=== PATIENT | male | born 1990 | race Caucasian/White ===

== ENCOUNTER 2018-09-04 18:22 | Inpatient (IN) | payer MEDICAID, OTHER ==
[~2018-09-04] VITALS: Ht 170.2 cm; Wt 65.0 kg
[~2018-09-04 18:22] MED LIST: SLEEP MED
--- NOTE | 2018-09-04 18:33 | NUR ---
27 Y/O MALE BIB PERFORMANCE TEST ARCHITECT WITH C/O SI [facility] DAD CALLED AND SAID HE IS SUICIDAL. HE IS ON A LEGAL HOLD." PT CHANGED INTO GOWN. EDMD BEDSIDE. PT REMOVED FROM ALL HIS CLOTHING AND PLACED INTO GOWN. PT STATING "DELMER DONT LOOK SO EVIL. I'M THE DEVIL. I DON'T KNOW WHO I'M TALKING TO."
--- NOTE | 2018-09-04 18:46 | NUR ---
PATIENT UNCOOPERATIVE FOR BREATHALYZER
--- NOTE | 2018-09-04 18:51 | NUR ---
PT DENIES HI/SI. PT PLACED IN TWO POINT RESTRAINTS
--- NOTE | 2018-09-04 18:51 | NUR ---
BEDSIDE REPORT TO ISHMAEL PHILLIPS
--- NOTE | 2018-09-04 19:05 | NUR ---
RECEIVED BS REPORT FROM ISHMAEL LONGO TO ASSUME CARE OF PT. DR. ALMARAZ BROUGHT PT. FOOD AT THIS TIME. ROOM IS SECURED AND PER QING SITTER HAS BEEN REQUESTED. PT. SPEAKING RAPIDLY SAYING THINGS LIKE "DELMER LOOK UP, DELMER LOOK DOWN" OVER AND OVER AGAIN. PT. DOES ANSWER QUESTIONS BY STAFF EACH TIME STATING "DELMER SAYS YES" OR "DELMER SAYS NO". ALL SAFETY MEASURES OBSERVED.
[2018-09-04 19:09] LABS: ALANINE AMINOTRANSFERASE 66 U/L (12-78); ALBUMIN 3.8 g/dL (3.4-5.0); ANION GAP 6 mmol/L (5-15); CALCIUM 8.3 mg/dL (8.5-10.1); CHLORIDE 110 mmol/L (98-107); CREATININE 0.85 mg/dL (0.7-1.3)
[2018-09-04 19:11] LABS: ALKALINE PHOSPHATASE 74 U/L (45-117); TOTAL PROTEIN 6.9 g/dL (6.4-8.2)
[2018-09-04 19:13] LABS: SALICYLATE LEVEL < 1.7 mg/dL (2.8-20.0)
--- NOTE | 2018-09-04 20:01 | NUR ---
PT. HAD EATEN ALL NACHOS THAT WERE PROVIDED BY DR. ALMARAZ. PT. NOW REQUESTING MORE FOOD. PT. REMAINS IN SECURED ROOM WITH SITTER IN RENNER.
--- NOTE | 2018-09-04 20:22 | NUR ---
BS REPORT TO ISHMAEL BERMUDEZ. PT. MOVED TO ED 38 AT THIS TIME. ROOM IS SECURED. SITTER IN RENNER. PT. CONTINUES TO TALK TO SELF NON-STOP. SKIN PWD.
--- NOTE | 2018-09-04 20:26 | NUR ---
Report from Lea QUIÑONES, pt remains in 2 point restraints, pt appears untrustworthy at this time, will continue to montior and maintain all safety measures, all belongings remain locked up, all security doors down and sitter remains at door.
--- NOTE | 2018-09-04 20:44 | NUR ---
Pt given cheerios per request with milk, no plastic spoon provied for pt safety. Pt requesting to be taken out of restraints, when asked if pt understands plan and is to stay in room, pt states "I dont plan on staying here, Im leaving as soon as possible" Pt appears to still be flight risk and danger to self, will continue to keep in restraints at this time, sitter at door assisting pt with cheerios and milk
--- NOTE | 2018-09-04 21:04 | NUR ---
Pt refusing to give sitter his cheerio container, hiding it underneath him, pt uncooperative with staff, sitter remains at door
--- NOTE | 2018-09-04 22:24 | NUR ---
Pt refusing repeat vitals, increasingly agitated when electrophysiology technologist attempts to take vitals.
--- NOTE | 2018-09-04 22:40 | NUR ---
Pt taken out of restraints, agrees to remain in room, agrees to remain calm, cooperative. Sitter remains at door watching pt
--- NOTE | 2018-09-04 23:57 | NUR ---
Sitter remains at door, pt lying in bed smiling, quiet, when asked questions pt repeats "yes, no, yes no" Pt still uncooperative with obtaining urine sample
--- NOTE | 2018-09-05 00:22 | NUR ---
Pt ambualted to restroom with sitter, pt given more cheerios per request with sitter at door supervising pt
--- NOTE | 2018-09-05 00:49 | NUR ---
Sitter aware of need for ua
--- NOTE | 2018-09-05 00:53 | NUR ---
TP RN: WAITING ON [facility] TO FAX INFO
--- NOTE | 2018-09-05 01:57 | NUR ---
TASK RN: PT RESTING IN [place] [place] NOTED. ROOM SECURE. SITTER PRESENT.
--- NOTE | 2018-09-05 02:54 | NUR ---
Pt refusing to give back plastic spoon provided by jorge for cereal. Security called, spoon retrieved.
--- NOTE | 2018-09-05 02:54 | NUR ---
Pt continues to refuse vitals, increasingly agitated when low voltage technician attempts to take vitals. Pt given cup of water, pt threw cup of water on ground, water cleaned up by RN.
--- NOTE | 2018-09-05 03:04 | NUR ---
Pt requesting coffee, due to pts recent episode of throwing stuff toward staff no coffee or hot beverages will per given to pt
--- NOTE | 2018-09-05 03:08 | NUR ---
Report to Fuentes QUIÑONES
[2018-09-05] MEDS ORDERED: ZIPRASIDONE 20 MG INJ IM ONE ×4 (03:17→13:53)
[2018-09-05] MEDS: ZIPRASIDONE 20 MG INJ IM PRN ×2 (03:33→08:56)
--- NOTE | 2018-09-05 03:43 | NUR ---
PT MEDICATED PER MAR FOR AGITATION WITH SECURITY AT BS.
--- NOTE | 2018-09-05 04:05 | NUR ---
PT UNCOOPERATIVE AND REFUSING TO GIVE URINE SAMPLE. PT BEING VERBALLY ABUSIVE TO STAFF. PT HAS SITTER OUTSIDE OF ROOM AT THIS TIME FOR DIRECT OBSERVATION.
--- NOTE | 2018-09-05 04:58 | NUR ---
PT ASLEEP IN [facility] AT THIS TIME; CHAPIN. SITTER OUTSIDE OF PT ROOM FOR DIRECT OBSERVATION OF PT.
--- NOTE | 2018-09-05 05:47 | NUR ---
REPORT OF PT TO ISHMAEL SOLOMON. ALL QUESTIONS ANSWERED.
[2018-09-05 05:55] LABS: AMPHETAMINE SCREEN, URINE Negative (Negative); BARBITURATE SCREEN, URINE Negative (Negative); BENZODIAZEPINE SCREEN, URINE Negative (Negative); CANNABINOID SCREEN, URINE Positive (Negative); COCAINE SCREEN, URINE Negative (Negative); METHADONE SCREEN, URINE Negative (Negative); OPIATE SCREEN, URINE Negative (Negative)
--- NOTE | 2018-09-05 05:57 | NUR ---
report from lindsay assumed care of pt, pt sleeping in bed with room secure and sitter outside door in nad
--- NOTE | 2018-09-05 07:00 | NUR ---
bedside report from RN Carisa, pt care assumed at this time. Pt asleep in bed in suicide secured room, NAD, sitter at doorway, belongings secured by previous shift. MEGHAN.
--- NOTE | 2018-09-05 07:49 | NUR ---
BREAKFAST TRAY ORDERED
--- NOTE | 2018-09-05 08:56 | NUR ---
PT HAS BEEN INCREASINGLY AGITATED SINCE WAKING UP, PT PACING IN HIS ROOM AND CONTINUALLY TRYING TO PACE IN THE HALLWAY (PT COMPLIANT WHEN ASKED TO RETURN TO ROOM). SEE MAR FOR INTERVENTION. PT GIVEN BREAKFAST TRAY, 100% CONSUMED AND PT GIVEN DECAF COFFEE, MILK X 3, CEREAL IN ADDITION TO BREAKFAST TRAY
--- NOTE | 2018-09-05 09:34 | NUR ---
PT LYING IN GURNEY QUIETLY AND COOPERATIVE AT THIS TIME. VS UPDATED. PT WANTING DISCHARGE PAPERS. EXPLAINED TO PT THAT HE IS NOT QUITE READY FOR DISCHARGE
--- NOTE | 2018-09-05 09:46 | NUR ---
PACKET FAXED TO [facility]
--- NOTE | 2018-09-05 09:49 | NUR ---
report from tanya coyle. pt resting in room. vss. no needs expressed.
--- NOTE | 2018-09-05 10:15 | NUR ---
SITTER REMAINS OUTSIDE ROOM. DOORS REMAIN CLOSED OVER ROOM EQUIPMENT. PT SLEEPING
--- NOTE | 2018-09-05 10:34 | NUR ---
pt resting in secured room with eyes closed. no needs expressed. sitter remains at doorway for continuous obs.
--- NOTE | 2018-09-05 11:48 | NUR ---
pt calm and cooperative at this time. pt resting in secured room. milk and coffee provided per request. pt up self with steady gait with sitter to use phone. no other needs expressed. sitter remains at doorway. no other requests at this time.
--- NOTE | 2018-09-05 12:14 | NUR ---
pt up self with steady gait and with sitter to use phone. report given to rn from [facility]. sitter remains at doorway. pt returned to secured room.
--- NOTE | 2018-09-05 12:28 | NUR ---
LUNCH ORDERED FOR PT
[2018-09-05] MEDS ORDERED: LORazepam 1MG TABLET PO ONE (13:00)
[2018-09-05] MEDS ORDERED: LORazepam 1MG TABLET ONE (13:02)
--- NOTE | 2018-09-05 13:07 | NUR ---
pt refusing to remain in room. security called and present. pt initially refusing ativan, but eventually agreed. ativan administered. pt currently resting in secured room in [facility]. sitter at doorway for continuous obs.
--- NOTE | 2018-09-05 14:05 | NUR ---
pt again refusing to go back in room. security present and geodon administered. pt now resting in secured room with sitter at doorway for continuous obs.
[2018-09-05] MEDS ORDERED: BENZTROPINE 1 MG/ML, 2 ML IM ONE (15:00)
[2018-09-05] MEDS ORDERED: HALOPERIDOL 5 MG/ML IM ONE (15:00)
[2018-09-05] MEDS ORDERED: HALOPERIDOL 5 MG/ML ONE (15:03)
--- NOTE | 2018-09-05 15:05 | NUR ---
pt refusing to stay in room, stating he needs to leave to help his grandmother. security called and 2 point restraints applied appropriately at 1500. cms intact prior to application and post application. pt yelling at staff to remove restraints and hitting siderails wiht hands and feet. pt educated that his behavior will prolong the need for restraints. sitter remains at doorway. room secured.
--- NOTE | 2018-09-05 15:30 | NUR ---
pt remains uncooperative, yelling out stating that he wants the restraints off and that he needs to leave to help his grandmother. pt educated that yelling is unacceptable and he is on a legal hold and not allowed to leave. pt no longer hitting the bed. sitter remains at doorway for continuous obs. room secured.
--- NOTE | 2018-09-05 17:05 | NUR ---
pt calm, cooperative and no longer yelling at staff. pt agreed to verbal contract to stay in room and to notify staff before getting up to use restroom. security removed 2 point restraints at 1650. cms intact. pt resting in gurney with eyes closed. room secured. sitter at doorway for continuous obs. dinner tray ordered.
--- NOTE | 2018-09-05 18:48 | NUR ---
pt resting in [facility] with eyes closed. room secured. sitter at doorway for continuous obs.
--- NOTE | 2018-09-05 18:53 | NUR ---
pt remains calm and cooperative and no longer yelling at staff. pt has remained in secured room, resting in [facility] with eyes closed. sitter at doorway for continuous obs. dinner tray provided.
--- NOTE | 2018-09-05 19:45 | NUR ---
PT AWAKE. MILK PROVIDED PER REQUEST. PT APPRECIATIVE AND CALM.PT REMINDED TO STAY IN SECURED ROOM. PT COMPLIANT. SITTER REMAINS AT DOORWAY FOR CONTINUPUS OBS. NO OTHER NEEDS AT THIS TIME.
[2018-09-05] MEDS ORDERED: QUETIAPINE 100MG TABLET PO SCH (21:00)
[2018-09-05] MEDS ORDERED: QUETIAPINE 100MG TABLET ONE (21:01)
--- NOTE | 2018-09-05 22:00 | NUR ---
report from deondre assumed care of pt, sitter outside door and room secure, pt in nad and very pleasent and cooperative
[2018-09-06] MEDS ORDERED: NICOTINE 21 MG/24 HR PATCH.TD24 TD ONE ×2 (00:30→09:00)
[2018-09-06] MEDS ORDERED: NICOTINE 21 MG/24 HR PATCH.TD24 ONE (00:31)
--- NOTE | 2018-09-06 00:41 | NUR ---
deondre martínez stated that she gave seroquel on day shift but it was not documented in chart
--- NOTE | 2018-09-06 01:48 | NUR ---
pt in bed sleeping in nad
[2018-09-06] MEDS ORDERED: LORazepam 1MG TABLET PO ONE ×2 (07:30→15:30)
[2018-09-06] MEDS ORDERED: LORazepam 1MG TABLET ONE ×2 (08:02→15:25)
--- NOTE | 2018-09-06 08:32 | NUR ---
MEAL GIVEN MEDS PER ORDERS
--- NOTE | 2018-09-06 10:01 | NUR ---
REPORT FROM LEXIE QUIÑONES, ASSUME CARE OF PT AT THIS TIME. CHART REVIEWED. SITTER AT DOORWAY, PT APPEARS TO BE SLEEPING-EVEN RISE AND FALL OF CHEST.
--- NOTE | 2018-09-06 11:10 | NUR ---
SITTER AT DOORWAY. PT REQUESTING FOOD AND DRINK. SPRITE PROVIDED, LUNCH TRAY ORDERED.
--- NOTE | 2018-09-06 12:50 | NUR ---
MEAL TRAY PROVIDED, SITTER AT DOORWAY.
--- NOTE | 2018-09-06 13:30 | NUR ---
PT UP NEEDED TO BR. REQUEST TO RN FOR RAZOR TO CLIP TRAYLOR. POC REVIEWED WITH PT INCLUDING SAFETY PRECAUTIONS AND INABILITY TO PROVIDE RAZOR. SITTER AT DOORWAY FOR CLOSE OBS.
--- NOTE | 2018-09-06 14:48 | NUR ---
SITTER AT DOORWAY, CONTINUE TO AWAIT ADMISSION.
[2018-09-06] MEDS ORDERED: ACETAMINOPHEN 325 MG TABLET PO PRN (15:30)
[2018-09-06] MEDS: NICOTINE 14MG/24 HR PATCH.TD24 TD SCH (15:30)
--- NOTE | 2018-09-06 15:30 | NUR ---
ATIVAN GIVEN PER ERP ORDER AND PT REQUEST FOR ANXIETY. PT DID NOT WANT SANDWICH AND CHIPS FOR LUNCH-THROWN AWAY. PT PROVIDED MILK ON REQUEST.
[2018-09-06 15:39] LABS: BASOPHILS # (AUTO) 0.06 x10^3/uL (0-0.1); BASOPHILS % (AUTO) 1 % (0-1); EOSINOPHILS # (AUTO) 0.16 x10^3/uL (0-0.4); EOSINOPHILS % (AUTO) 3 % (1-7); LYMPHOCYTES # (AUTO) 1.22 x10^3/uL (1-3.4); LYMPHOCYTES % (AUTO) 26 % (22-44); MD NO; MEAN CORPUSCULAR HEMOGLOBIN 31.8 pg (27.5-34.5); MEAN CORPUSCULAR VOLUME 96.2 fL (81-97); MEAN PLATELET VOLUME 8.1 fL (7.4-10.4); MONOCYTES % (AUTO) 11 % (2-9); NEUTROPHILS % (AUTO) 59 % (42-75); PLATELET COUNT 249 x10^3/uL (130-400); RED BLOOD COUNT 4.06 x10^6/uL (4.38-5.82); RED CELL DISTRIBUTION WIDTH 16.6 % (9.4-14.8)
[2018-09-06 15:59] VITALS: BP 135/86
[2018-09-06] MEDS: INSULIN LISPRO 100 UNITS/ML, PEN SQ-INSULIN SCH ×2 (16:00→21:00)
[2018-09-06] MEDS ORDERED: DEXTROSE 4 GM TAB.CHEW PO PRN (16:00)
[2018-09-06] MEDS ORDERED: GLUCAGON 1 MG IM PRN (16:00)
[2018-09-06 16:28] VITALS: BP 135/86
[2018-09-06 16:57] LABS: HEMOGLOBIN A1C 4.7 % (4.2-6.3)
[2018-09-06 19:12] VITALS: BP 106/63
[2018-09-06] MEDS ORDERED: QUETIAPINE 100MG TABLET PO SCH (21:00)
[2018-09-06] MEDS ORDERED: SODIUM CHLORIDE FLUSH 10ML SYR IVF SCH (21:00)
[2018-09-06] MEDS: LORazepam 1MG TABLET PO PRN (21:01)
[2018-09-06] MEDS: ZIPRASIDONE 20MG CAPSULE PO PRN (22:01)
[2018-09-07] MEDS: INSULIN LISPRO 100 UNITS/ML, PEN SQ-INSULIN SCH ×2 (07:00→11:00)
[2018-09-07] MEDS: ZIPRASIDONE 20MG CAPSULE PO PRN (12:24)
[2018-09-07] MEDS: LORazepam 1MG TABLET PO PRN (13:12)
[2018-09-07] MEDS: NICOTINE 14MG/24 HR PATCH.TD24 TD SCH (14:17)
[2018-09-07] MEDS ORDERED: QUETIAPINE 25MG TABLET PO PRN (15:00)
[2018-09-07] MEDS ORDERED: HALOPERIDOL 5 MG/ML IM PRN (15:00)
[2018-09-07] MEDS ORDERED: HALOPERIDOL 5 MG TABLET PO PRN (15:00)
[2018-09-07] MEDS ORDERED: QUETIAPINE 100MG TABLET PO SCH (21:00)
[2018-09-08] MEDS ORDERED: QUETIAPINE 100MG TABLET PO SCH (09:00)
== END 2018-09-07 16:10 | DRG 885 ==
LOC: ED 21:07 → EDIP 09-06 15:12 → 2N 09-06 15:57
PROVIDERS: ADMIT Hospitalist; ATTEND Hospitalist
DX: F20.9 Schizophrenia, unspecified (principal); R45.851 Suicidal ideations; E11.9 Type 2 diabetes mellitus without complications; F12.10 Cannabis abuse, uncomplicated; F32.9 Major depressive disorder, single episode, unspecified; F43.10 Post-traumatic stress disorder, unspecified; G47.00 Insomnia, unspecified; Z87.891 Personal history of nicotine dependence; R00.0 Tachycardia, unspecified
CPT/HCPCS: 36415; 80053; 80307; 82962; 83036; 84443; 85025; 93005; 96372; 99285; J0515; J3486; G0378; J1630

== ENCOUNTER 2018-10-14 12:47 | Emergency (ER) | payer MEDICAID ==
--- NOTE | 2018-10-14 12:55 | NUR ---
PT REFUSED AL TX AND ERP EXAM ON ARRIVAL WOULD NOT TALK HOWEVER SITTING UPRIGHT LOOKIN AROUND PT PULLED OUT HIS IV WHEN ATTEMPTS MADE TO CONTROLL THE BLEEDING AT THE IV SITE PT BECAME VERBAL AND ASSUALTIVE HE STATED TO NOT TX HIM AND HE WANTED TO LEAVE ESCORTED OUT BY SECURITY STABLE GAIT WO ASSIST
== END 2018-10-14 13:09 | disposition left against medical advice (07) ==
LOC: ED 13:03
DX: L55.0 Sunburn of first degree (principal)
CPT/HCPCS: 99283

== ENCOUNTER 2019-01-23 05:06 | Emergency (ER) | payer MEDICAID ==
[~2019-01-23] VITALS: Ht 167.6 cm; Wt 65.0 kg
[2019-01-23 05:42] VITALS: BP 121/80
--- NOTE | 2019-01-23 05:49 | NUR ---
Patient into room with cuffs brought by [facility]'s Department. Patient is uncooperative and will not answer even basic questions. Officer's aren't able to fill in why they transported patient here, simply reported they were just doing what they were told. Patient appears healthy, well nourished. Patient finally agreeable and RN able to chart under appropriate chart. Patient required cereal to become agreeable. Awaiting plan
== END 2019-01-23 06:25 | disposition home or self-care (01) ==
LOC: ED 06:10
DX: F22 Delusional disorders (principal); E11.9 Type 2 diabetes mellitus without complications
CPT/HCPCS: 82962; 99282; 99283